=== PATIENT | female | born 1970 | race Caucasian/White ===

== ENCOUNTER 2023-12-25 12:00 | Emergency (ER) | payer OTHER, SELFPAY ==
[2023-12-25 12:01] VITALS: BP 166/96
--- NOTE | 2023-12-25 12:17 | ED.GENMED ---
History of Present Illness
<Inge Huang MD, Resident - Last Filed: 12/25/23 15:09>
General
Chief Complaint: Flank Pain
Source: patient
Exam Limitations: none
Time Seen by Provider: 12/25/23 12:12
Nursing documentation reviewed up to this point in time: agreed with
Travel History
Have you traveled to any high risk areas for coronavirus over the past 14 days?: No
Have you had any contact with someone who has COVID-19?: No
Do you have any symptoms of coronavirus? Fever > 100 degrees, chills, cough, shortness of breath, sore throat, loss of taste or smell, muscle aches, or headache?: No
History of Present Illness
History of Present Illness:
53-year-old female with PMHx of hyperlipidemia, Breast implants, tonsillectomy, cystitis/UTI in 2022 presents to the hospital for evaluation of right flank pain. Her symptoms started about 2 days ago with increased frequency, hesitancy, burning
sensation while passing urine, change in color, and odour to the urine, which is accompanied by flank pain that was initially intermittent. Left flank pain became continuous and is progressively worsening beginning yesterday morning, limited to the
right side, and is radiating into her right scapula but not into her abdomen. She has some associated nausea and headaches, mild subjective fevers but her fevers at home but never greater than 100.4. She denies having chills, rigors, sick
contacts, abdominal pain, vomitings, blood in the urine, change in bowel movements. Her menopause was at 53, states vaginal atrophy and 50 pounds of weight gain for the last 4 years.
An episode of UTI in 2022, however not accompanied by flank pain-treated with antibiotics.
If applicable-neuro sx onset
Onset of symptoms known: No
Time pt last seen normal is known: No
Past History
<Inge Huang MD, Resident - Last Filed: 12/25/23 15:09>
Past History
ED Past Medical History: Hypercholesterolemia
ED Past Surgical History: Other (breast augmentation)
Patient has exhibited threatening behavior?: No
PSI?: No
Social History
Tobacco: Non-smoker
Alcohol: None
Drug: None
Personal: Single
Living: with roommate
Employment: Employed
Family History
Family History: Other
Review of Systems
<Inge Huagn MD, Resident - Last Filed: 12/25/23 15:09>
Review of Systems
Allergies reviewed?: Yes
Other source history: family
Constitutional: Reports fever; Denies weight loss, fatigue, night sweats or chills
EENT: Reports no symptoms
Respiratory: Reports no symptoms
Cardiac: Reports no symptoms
ABD/GI: Reports nausea; Denies vomiting, diarrhea, constipated or bloody stools
: Reports dysuria, frequency, flank pain and other (Changing color of the urine)
Musculoskeletal: Reports no symptoms
Skin: Reports no symptoms
Neurological: Reports no symptoms
Endocrine: Reports no symptoms
Hematologic/Lymphatic: Reports no symptoms
Psychiatric: Reports no symptoms
Phy Exam
<Inge Huang MD, Resident - Last Filed: 12/25/23 15:09>
General Physical Exam
General Presentation: well appearing and no apparent distress
General age: appears stated age
General Skin: warm
General Habitus: normal
General Mental: alert
General Hydration: appears well hydrated
Eye Exam
Eye Exam: PERRL and EOMI
Cardiovascular Exam
Cardiovascular Exam: regular rate/rhythm, no edema, no gallop, no murmur and normal peripheral pulses
Heart Sounds: normal
Pulmonary Exam
Pulmonary Exam: lungs clear, no respiratory distress, no rales, no crackles and no rhonchi
Gastrointestinal Exam
Gastrointestinal Exam: normal bowel sounds, non tender, soft, non distended and cva tenderness (on the right)
Neurological Exam
Neurological Exam: alert and oriented x3
Course
<Inge Huang MD, Resident - Last Filed: 12/25/23 15:09>
Orders/Labs/Results
Orders:
Orders
12/25/23
Electrocardiogram (*1) Stat
Reason for Study: Chest Pain
Comment: DONE
12/25/23 12:10
Complete Blood Count/With Diff Urgent
Comprehensive Metabolic Panel Urgent
Lipase Urgent
12/25/23 12:29
Urinalysis Reflex To Culture Urgent
Date Specimen was Collected: 12/25/23
Time Specimen was Collected: 12:14
Urine Microscopic Reflex Cult Urgent
12/25/23 12:51
HYDROmorphone [Dilaudid] 0.5 mg IV NOW STA
Ondansetron Injectable [Zofran] 4 mg IV NOW STA
12/25/23 12:58
HYDROmorphone [Dilaudid] 2 mg PO NOW STA
Ondansetron HCl [Zofran] 4 mg PO NOW STA
12/25/23 13:07
Acetaminophen [Tylenol] 1,000 mg PO NOW STA
12/25/23 13:30
CT Abd/pel Without Iv Or Oral Urgent
Comment:
Reason For Exam: right flank pain
12/25/23 14:46
Ibuprofen [Motrin] 800 mg PO NOW STA
Abnormal Lab Results
12/25/23 12/25/23
12:10 12:29
Glucose 120 H mg/dl
(70-99)
Leukocyte Esterase Rfl Trace A
(Negative)
12/25/23 12:10
12/25/23 12:10
Vital Signs
Initial and Last Documented VS:
Initial Vital Signs
Temp Pulse Resp BP Pulse Ox
99.2 F 93 16 166/96 96
12/25/23 12:01 12/25/23 12:01 12/25/23 12:01 12/25/23 12:01 12/25/23 12:01
Last Documented Vital Signs
Temp Pulse Resp BP Pulse Ox
99.2 F 93 16 110/97 96
12/25/23 12:01 12/25/23 12:01 12/25/23 12:01 12/25/23 13:00 12/25/23 12:01
<Anoop Matthews, DO - Last Filed: 12/25/23 13:15>
Orders/Labs/Results
Orders:
Orders
12/25/23
Electrocardiogram (*1) Stat
Reason for Study: Chest Pain
Comment: DONE
12/25/23 12:10
Complete Blood Count/With Diff Urgent
Comprehensive Metabolic Panel Urgent
Lipase Urgent
12/25/23 12:29
Urinalysis Reflex To Culture Urgent
Date Specimen was Collected: 12/25/23
Time Specimen was Collected: 12:14
Urine Microscopic Reflex Cult Urgent
12/25/23 12:51
HYDROmorphone [Dilaudid] 0.5 mg IV NOW STA
Ondansetron Injectable [Zofran] 4 mg IV NOW STA
12/25/23 12:58
HYDROmorphone [Dilaudid] 2 mg PO NOW STA
Ondansetron HCl [Zofran] 4 mg PO NOW STA
12/25/23 13:07
Acetaminophen [Tylenol] 1,000 mg PO NOW STA
12/25/23 13:30
CT Abd/pel Without Iv Or Oral Urgent
Comment:
Reason For Exam: right flank pain
12/25/23 14:46
Ibuprofen [Motrin] 800 mg PO NOW STA
Abnormal Lab Results
12/25/23 12/25/23
12:10 12:29
Glucose 120 H mg/dl
(70-99)
Leukocyte Esterase Rfl Trace A
(Negative)
12/25/23 12:10
12/25/23 12:10
Vital Signs
Initial and Last Documented VS:
Initial Vital Signs
Temp Pulse Resp BP Pulse Ox
99.2 F 93 16 166/96 96
12/25/23 12:01 12/25/23 12:01 12/25/23 12:01 12/25/23 12:01 12/25/23 12:01
Last Documented Vital Signs
Temp Pulse Resp BP Pulse Ox
99.2 F 93 16 110/97 96
12/25/23 12:01 12/25/23 12:01 12/25/23 12:01 12/25/23 13:00 12/25/23 12:01
<Inge Huang MD, Resident - Last Filed: 12/25/23 15:09>
MDM/Problems Addressed
Differential Diagnosis Includes:
UTI, cystitis, nephrolithiasis, cholelithiasis,
MDM/Problems Addressed:
Right flank pain, nausea.
<Inge Huang MD, Resident - Last Filed: 12/25/23 15:09>
*EKG
Interpreted by ED Provider?: NA
*Hand Screen Printer Interpretation
Rate: Hand Screen Printer- N/A
*Critical Care Note
Total Time (30-74mins, 75-104mins- exclusive of procedures): Not Applicable
<Inge Huang MD, Resident - Last Filed: 12/25/23 15:09>
Update Note
Update Note:
CBC, CMP within normal limits.
Urine analysis negative for UTI.
CT abdomen and pelvis no evidence of renal calculi.
Lipase levels unremarkable.
Updated the patient that her pain could be likely secondary to musculoskeletal involvement.
ED Attending Note
<Inge Huang MD, Resident - Last Filed: 12/25/23 15:09>
-
Portions of this chart may have been created with voice recognition software.� Occasional wrong word or��sound alike� substitutions may have occurred due to the inherent limitations of voice recognition software.
<Anoop Matthews, - Last Filed: 12/25/23 13:15>
ED Attending Note
Patient seen and examined by attending physician: Yes
I performed a history and physical exam of patient and discussed management with resident, I reviewed resident's note and agree with documented findings and plan of care.: Yes
ED Attending Note:
I reviewed and agree with history treatment plan by Inge Huang MD. My exam revealed 53-year-old female in no acute distress, right CVA tenderness. Evaluate with CT abdomen pelvis, UA pending. Doubt biliary colic.
Discharge Plan
Departure
Patient Disposition: Home (Routine Discharge)
Date of Disposition: 12/25/23
Time of Disposition: 15:06
Patient with high blood pressure during this ER visit?: Yes
Discharge Problem:
Musculoskeletal back pain, Elevated blood pressure reading
Instructions: Flank Pain (DC), BLOOD PRESSURE
Referrals:
Inge Huang MD, Resident [Emergency Midlevel Provider] - Follow up in 10 days
NONE,* [Family Provider] -
Activity Restrictions/Additional Instructions:
No restrictions.
Take ibuprofen 600 to 800 mg 3 times daily with food for pain. Do not take ibuprofen on empty stomach.
Can also add Tylenol for optimal pain control-maximum of 3 g a day.
Interventions
Interventions:
*Risk Screen - Suicide Last Done: 12/25/23 12:01
*General Assessment Last Done: 12/25/23 12:01
*Neglect/Abuse Screening Last Done: 12/25/23 12:01
ED- Fall Risk Assessment Last Done: 12/25/23 12:15
*ED COVID-19 Vaccine History Last Done: 12/25/23 12:01
BZ-Qqfsbb-Vwifhzglfe Assessment Last Done: 12/25/23 12:15
ED-Female Genitourinary Assessment Last Done: 12/25/23 12:15
Discharge Date and Time
Print Language: UPPER SORBIAN
[2023-12-25 12:19] LABS: % Basophils 0.6 % (0-2); % Eosinophils 2.8 % (0-6); % Immature Granulocytes 0.3 % (0-0.5); % Lymphocytes 34.6 % (20.5-51.1); % Monocytes 7.9 % (1.7-9.3); % Neutrophils 53.8 % (42.2-75.2); Absolute Eosinophils 0.2 10^3/uL (0-0.7); Absolute Lymphocytes 2.5 10^3/uL (1.2-3.4); Absolute Monocytes 0.6 10^3/uL (0.1-0.6); Absolute Neutrophils 3.8 10^3/uL (1.4-6.5); Hematocrit 39.7 % (37.0-47.0); Hemoglobin 13.7 g/dL (12.0-16.0); Mean Corp Hgb Conc. 34.5 g/dL (33.0-37.0); Mean Corpuscular Hgb 30.2 pg (27.0-31.0); Mean Corpuscular Volume 87.4 fL (81.0-99.0); Mean Platelet Volume 9.6 fL (7.4-10.4); Nucleated Red Blood Cells % 0 %; Platelet Count 293 10^3/uL (130-400); Red Blood Cell Count 4.54 10^6/uL (4.20-5.40); Red Cell Dist. Width 12.4 % (11.5-14.5); White Blood Cell Count 7.1 10^3/uL (4.8-10.8)
[2023-12-25 12:34] VITALS: BMI 33.4
[2023-12-25 12:44] LABS: ALT (SGPT) 27 U/L (0-35); AST (SGOT) 27 U/L (14-36); Albumin 4.8 g/dl (3.5-5.0); Alkaline Phosphatase 79 U/L (38-126); Blood Urea Nitrogen 11 mg/dl (7-17); Calcium 10.1 mg/dl (8.4-10.2); Carbon Dioxide 26 mmol/L (22-30); Chloride 102 mmol/L (98-107); Estimated Creatinine Clearance 102 ml/min; Glucose 120 mg/dl (70-99); Lipase 96 U/L (23-300); Potassium 4.5 mmol/L (3.5-5.1); Sodium 140 mmol/L (135-145); Total Bilirubin 0.5 mg/dl (0.2-1.3); Total Protein 7.8 g/dl (6.3-8.2); eGFR > 60.00
[2023-12-25 13:00] VITALS: BP 110/97
[2023-12-25 13:14] LABS: Urine Albumin Negative (Neg - Trace); Urine Bilirubin Negative (Negative); Urine Character Clear (Clear); Urine Color Yellow; Urine Glucose Negative (Negative); Urine Ketone Negative (Negative); Urine Leukocyte Trace (Negative); Urine Nitrite Negative (Negative); Urine Occult Blood Negative (Negative); Urine Specific Gravity 1.005 (<1.030); Urine Urobilinogen Negative (Neg - 1+)
[2023-12-25] MEDS: TYLENOL 1000 MG PO (13:18)
[2023-12-25 13:19] LABS: Urine Red Blood Cell 0-2 /HPF (0-2); Urine White Cell 0-2 /HPF (0-5)
[2023-12-25] MEDS: MOTRIN 800 MG PO (14:51)
== END 2023-12-25 15:20 | disposition home or self-care (01) ==
LOC: EMR 12:00
PROVIDERS: Emergency Medicine; Student in an Organized Health Care Education/Training Program; EMERGENCY PHYSICIAN Emergency Medicine
DX: R07.89 Other chest pain (principal); E78.00 Pure hypercholesterolemia, unspecified; Z87.440 Personal history of urinary (tract) infections
CPT/HCPCS: 99284; 74176; 80053; 81003; 81015; 83690; 85025; 93005

== ENCOUNTER 2024-01-03 18:47 | Emergency (ER) | payer SELFPAY ==
[2024-01-03 18:49] VITALS: BP 165/111
[2024-01-03 19:52] VITALS: BP 137/91
--- NOTE | 2024-01-03 20:13 | ED.GENMED ---
History of Present Illness
General
Chief Complaint: Fall
Source: patient
Time Seen by Provider: 01/03/24 19:55
History of Present Illness
History of Present Illness:
53-year-old female presenting to the emergency department for evaluation after she was walking and excellently tripped and fell landing on her left wrist and right knee. Patient stating the left wrist is what is bothering her most stating she is
having a hard time pronating and supinating and points to the distal ulnar aspect as to where she is having most of her pain. No head injury. No other concerns. Denies any previous history of injury or surgery.
Past History
Past History
ED Past Medical History: Hypercholesterolemia
ED Past Surgical History: Tonsilectomy and Other (breast augmentation)
Patient has exhibited threatening behavior?: No
PSI?: No
Social History
Tobacco: Non-smoker
Alcohol: None
Drug: None
Personal:
Living: with roommate
Employment: Employed
Family History
Family History: Other
Review of Systems
Review of Systems
All Other Systems: ROS reviewed and negative except as documented in HPI and ROS
Phy Exam
Physical Exam
Physical Exam:
GENERAL: Alert , in no apparent distress
EYE: conjunctiva clear
Head: Normocephalic atraumatic
NECK: Supple,
ENT: mmm.
LUNGS: no acute respiratory distress
NEUROLOGICAL: Alert and oriented
SKIN: Warm and dry, vertically oriented abrasion over the right patella. No active bleeding
MUSCULOSKELETAL: well perfused. Left upper extremity: No obvious deformity, erythema, edema, ecchymosis, abrasions or lacerations. Tenderness over the distal ulnar aspect with pain with any attempted range of motion especially pronation
supination. Extremity is otherwise warm and well-perfused and neurovascularly intact.
PSYCH: Normal and appropriate interaction.
Scores
Heart Failure Risk
Heart Failure Risk Score: Not Applicable
Heart Score for Chest Pain Patients
STEMI patient?: Not applicable
Withdrawal Assessment of Alcohol
Withdrawal Assessment Completed?: Not applicable
Course
Orders/Labs/Results
Orders:
Orders
01/03/24 18:51
Wrist, Left 3 Views CR [CR Wrist - Left Min 3 Views] Urgent
Comment:
Reason For Exam: injury
Vital Signs
Initial and Last Documented VS:
Initial Vital Signs
Temp Pulse Resp BP Pulse Ox
98.1 F 104 17 165/111 98
01/03/24 18:49 01/03/24 18:49 01/03/24 18:49 01/03/24 18:49 01/03/24 18:49
Last Documented Vital Signs
Temp Pulse Resp BP Pulse Ox
98.1 F 72 17 137/91 98
01/03/24 18:49 01/03/24 19:52 01/03/24 18:49 01/03/24 19:52 01/03/24 18:49
Procedures
Splinting/Sling Placement
Left Wrist:
Procedure completed by: Jeremiah
Pre-splint extermity exam: neurovascular intact
Type of splint: volar
Splint material: other (3 inch Ortho-Glass)
Splint checked by provider?: Yes
Normal distal neurovascular exam?: Yes
MDM/Problems Addressed
Differential Diagnosis Includes:
Sprain, fracture, contusion
MDM/Problems Addressed:
53-year-old female presenting to the ER for evaluation following an accidental fall resulting in right knee and left wrist injury. X-ray of the left wrist was ordered from triage and ultimately shows no fracture. Given the amount of pain patient
is in though decision was made to place in volar wrist splint for comfort. Information for orthopedics provided, RICE recommendations discussed. NSAIDs/Tylenol as needed for pain. Stable for discharge home.
*Radiology
Radiology exam reviewed: preliminary read by ED provider (No acute fracture)
*Pulse Oximetry
Patient hypoxic: no
*Critical Care Note
Total Time (30-74mins, 75-104mins- exclusive of procedures): Not Applicable
ED Attending Note
-
Portions of this chart may have been created with voice recognition software.� Occasional wrong word or��sound alike� substitutions may have occurred due to the inherent limitations of voice recognition software.
Discharge Plan
Departure
Patient Disposition: Home (Routine Discharge)
Date of Disposition: 01/03/24
Time of Disposition: 20:13
Patient with high blood pressure during this ER visit?: Yes
Discharge Problem:
Left wrist sprain
Instructions: Common Wrist Injuries ED
Referrals:
NONE,* [Family Provider] -
Adeel Hdez MD [Active] - (Ortho - Call for appointment)
Interventions
Interventions:
*Risk Screen - Suicide Last Done: 01/03/24 18:49
*General Assessment Last Done: 01/03/24 18:49
*Neglect/Abuse Screening Last Done: 01/03/24 18:49
*ED COVID-19 Vaccine History Last Done: 01/03/24 20:25
*Nursing Disposition Last Done: 01/03/24 20:25
Discharge Date and Time
Discharge Date/Time: 01/03/24 20:25
Print Language: [id number]
== END 2024-01-03 20:25 | disposition home or self-care (01) ==
LOC: EMR 18:47
PROVIDERS: EMERGENCY PHYSICIAN Emergency Medicine
DX: S63.502A Unspecified sprain of left wrist, initial encounter (principal); W01.0XXA Fall on same level from slipping, tripping and stumbling without subsequent striking against object, initial encounter; Y93.01 Activity, walking, marching and hiking; E78.00 Pure hypercholesterolemia, unspecified
CPT/HCPCS: 99283; 73110

== ENCOUNTER → 2024-05-26 15:47 | Outpatient (REF) | payer BC, SELFPAY | LOC: CLAB 15:47 | PROVIDERS: ATTENDING PHYSICIAN Specialist | DX: C44.319 Basal cell carcinoma of skin of other parts of face (principal); L98.9 Disorder of the skin and subcutaneous tissue, unspecified | CPT/HCPCS: 88307; 88332; 88331 ==